=== PATIENT | male | born 1980 | race Hispanic/Latino ===

== ENCOUNTER 2018-09-25 04:17 | Observation (INO) | payer SELFPAY ==
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
[2018-09-25] MEDS ORDERED: Tetanus/Diphtheria Toxoids 0.5 ml Syringe IM ONE (04:49)
[2018-09-25] MEDS ORDERED: Morphine 4 MG/ML VIAL ONE ×2 (04:56→12:09)
[2018-09-25 05:02] LABS: BASO % 0.4 % (0.0-2.0); EOS # 0.1 K/uL (0.0-0.7); EOS % 1.1 % (0.0-4.0); HEMOGLOBIN 14.1 g/dL (12.0-18.0); LYMPH # 1.1 K/uL (1.0-4.3); MEAN CELL VOLUME 92.5 fL (80.0-94.0); MEAN CORPUSCULAR HEMOGLOBIN 32.1 pg (27.0-31.0); MEAN CORPUSCULAR HGB CONC 34.7 g/dL (33.0-37.0); MEAN PLATELET VOLUME 8.7 fL (7.2-11.7); MONO # 0.4 K/uL (0.0-0.8); MONO % 4.4 % (0.0-10.0); NEUT # 7.6 K/uL (1.8-7.0); NEUT % 82.1 % (50.0-75.0); NRBC % 0.1 % (0.0-2.0); RBC 4.4 Mil/uL (4.40-5.90); RED CELL DISTRIBUTION WIDTH 13.7 % (11.5-14.5); WHITE BLOOD COUNT 9.3 K/uL (4.8-10.8)
[2018-09-25 05:14] LABS: PROTHROMBIN TIME 11.1 SECONDS (9.7-12.2)
[2018-09-25 05:15] LABS: ALB/GLOB RATIO 1.5 (1.0-2.1); ALBUMIN 4.6 g/dL (3.5-5.0); ALT/SGPT 41 U/L (21-72); AST/SGOT 52 U/L (17-59); BLOOD UREA NITROGEN 8 mg/dL (9-20); CALCIUM 9.3 mg/dl (8.6-10.4); GFR NON-AFRICAN AMERICAN > 60
[2018-09-25] MEDS ORDERED: Iodixanol 320 MG/ML 100 ML BOTTLE IV ONE (05:22)
[2018-09-25 06:25] LABS: GRANULAR CAST 4 /lpf (0-1); SQUAMOUS EPITHIAL < 1 /hpf (0-5); URINE BACTERIA RARE (<OCC); URINE BILIRUBIN NEGATIVE (NEGATIVE); URINE BLOOD 1+ (NEGATIVE); URINE CLARITY Clear (Clear); URINE COLOR Straw (YELLOW); URINE GLUCOSE (UA) NORMAL (Normal); URINE LEUKOCYTE ESTERASE NEG Leu/uL (Negative); URINE PROTEIN 1+ mg/dL (NEGATIVE); URINE UROBILINOGEN NORMAL mg/dL (0.2-1.0)
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
[2018-09-25] MEDS ORDERED: Morphine 4 MG/ML VIAL IVP PRN (10:26)
[2018-09-25] MEDS ORDERED: Lidocaine 5% Patch TD ONE (10:32)
[2018-09-25] MEDS: Lidocaine 5% Patch TD SCH (10:36)
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
[2018-09-25] MEDS ORDERED: Sodium Chloride 0.9% 1,000 ML IV SCH (11:30)
[2018-09-25] MEDS ORDERED: Multivitamin (MVI) 10 ML, Thiamine 100 MG, Folic Acid 1 MG in Sodium Chloride 0.9% 1,00... IV ONE (12:00)
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
--- NOTE | 2018-09-25 13:22 | CT ---
Date of service: 09/25/2018 PROCEDURE: CT Chest, Abdomen and Pelvis with intravenous contrast HISTORY: TRAUMA COMPARISON: None available. TECHNIQUE: Contiguous helical/transaxial sections of the chest abdomen pelvis performed following intravenous injection of approximately 100 cc Visipaque 320 contrast material. Additional 2D sagittal and coronal reformats generated. Radiation dose: Total exam DLP = 471.84 mGy-cm. This CT exam was performed using one or more of the following dose reduction techniques: Automated exposure control, adjustment of the mA and/or kV according to patient size, and/or use of iterative reconstruction technique. FINDINGS: CT CHEST WITH CONTRAST: LUNGS: There is a small pneumothorax predominately located within the right lung apex. There small localized somewhat rounded shaped opacity seen in the right posterolateral lower lung field subjacent although just to cephalad to acute fractures of the right posterolateral 9th and 10th ribs. Findings likely represent mild post traumatic contusional changes and atelectasis. Minor passive/dependent type atelectasis left posterior sulcus. Small elliptical shaped calcified granuloma left posteromedial lung base abutting the pleural surface. MEDIASTINUM: Unremarkable. Normal caliber aorta and pulmonary arterial trunk. No aortic dissection. Normal size heart. LYMPH NODES: Unremarkable. PLEURA: Unremarkable. No pneumothorax. No pleural fluid. BONES: There are fractures of the right posterolateral 9th and 10th ribs associated with small amount of overlying subcutaneous emphysema. OTHER FINDINGS: None. CT ABDOMEN AND PELVIS: LIVER: Unremarkable. No gross lesion or ductal dilatation. GALLBLADDER AND BILE DUCTS: Unremarkable. PANCREAS: Unremarkable. No gross lesion or ductal dilatation. SPLEEN: Unremarkable. ADRENALS: Unremarkable. No mass. KIDNEYS AND URETERS: Unremarkable. No hydronephrosis. No solid mass. VASCULATURE: No aortic atherosclerotic calcification or mural plaque present. Unremarkable. No aortic aneurysm. BOWEL: Unremarkable. No obstruction. No gross mural thickening. APPENDIX: The appendix not seen with certainty on this exam however no obvious inflammatory changes right lower quadrant of the abdomen. PERITONEUM: Unremarkable. No free fluid. No free air. Tiny fat containing umbilical hernia. LYMPH NODES: Unremarkable. No enlarged lymph nodes. BLADDER: Unremarkable. REPRODUCTIVE: Unremarkable. BONES: No acute fracture. OTHER FINDINGS: None. IMPRESSION: There are nondisplaced fractures of the right posterolateral 9th and 10th ribs. Additionally, there is a small right-sided pneumothorax predominantly apical in location. Probable minor posttraumatic contusional changes in the right posterolateral lower lobe subjacent but just cephalad the to the aforementioned rib fractures.
--- NOTE | 2018-09-25 13:32 | RAD ---
Date of service: 09/25/2018 HISTORY: pneumothorax COMPARISON: Made with prior CT chest 09/25/2018 at 0542 hr TECHNIQUE: Chest PA and lateral FINDINGS: LUNGS: Tiny residual right-sided pneumothorax again noted most conspicuous in appearance adjacent to the right cardiac border. Previously noted small discrete presumed posttraumatic lung parenchymal contusional change right lower lobe poorly seen as compared to prior high-resolution CT scan. Suspect minor bibasilar atelectasis PLEURA: No significant pleural effusion identified. No pneumothorax apparent. CARDIOVASCULAR: No aortic atherosclerotic calcification present. Normal cardiac size. No pulmonary vascular congestion. OSSEOUS STRUCTURES: . Nondisplaced right 9th and 10th rib fractures poorly delineated VISUALIZED UPPER ABDOMEN: Normal. OTHER FINDINGS: None. IMPRESSION: Tiny residual right-sided pneumothorax again noted most conspicuous in appearance adjacent to the right cardiac border. Previously noted small discrete presumed posttraumatic lung parenchymal contusional change right lower lobe poorly seen as compared to prior high-resolution CT scan Suspect minimal bibasilar atelectasis.
[2018-09-25] MEDS: Oxycodone/Acetaminophen 5/325 mg Tab PO PRN ×2 (16:03→21:38)
[2018-09-25] MEDS ORDERED: Oxycodone/Acetaminophen 5/325 mg Tab ONE (16:03)
[2018-09-25 16:38] VITALS: O2SAT 98
[2018-09-26 07:12] LABS: ALB/GLOB RATIO 1.3 (1.0-2.1); ALBUMIN 3.6 g/dL (3.5-5.0); ALT/SGPT 37 U/L (21-72); AST/SGOT 49 U/L (17-59); BLOOD UREA NITROGEN 11 mg/dL (9-20); CALCIUM 8.7 mg/dl (8.6-10.4); GFR NON-AFRICAN AMERICAN > 60
[2018-09-26] MEDS: Oxycodone/Acetaminophen 5/325 mg Tab PO PRN (07:24)
[2018-09-26 07:33] LABS: BASO % 0.5 % (0.0-2.0); EOS # 0.2 K/uL (0.0-0.7); HEMOGLOBIN 13.2 g/dL (12.0-18.0); LYMPH # 1.2 K/uL (1.0-4.3); LYMPH % 15.6 % (20.0-40.0); MEAN CORPUSCULAR HEMOGLOBIN 32.4 pg (27.0-31.0); MEAN CORPUSCULAR HGB CONC 34.5 g/dL (33.0-37.0); MEAN PLATELET VOLUME 9.2 fL (7.2-11.7); MONO # 0.7 K/uL (0.0-0.8); MONO % 8.7 % (0.0-10.0); NEUT # 5.7 K/uL (1.8-7.0); NEUT % 72.2 % (50.0-75.0); NRBC % 0.1 % (0.0-2.0); RBC 4.08 Mil/uL (4.40-5.90); RED CELL DISTRIBUTION WIDTH 14.3 % (11.5-14.5); WHITE BLOOD COUNT 7.9 K/uL (4.8-10.8)
[2018-09-26 08:17] VITALS: BP 123/81; PULSE 67; RESP 18; TEMP 97.4
--- NOTE | 2018-09-26 09:31 | RAD ---
Date of service: 09/26/2018 HISTORY: re-eval right pneumothorax COMPARISON: 09/25/2018 FINDINGS: LUNGS: No active pulmonary disease. PLEURA: No significant pleural effusion identified, no pneumothorax apparent. CARDIOVASCULAR: No aortic atherosclerotic calcification present. Normal cardiac size. OSSEOUS STRUCTURES: Right 9th and 10th rib fractures. VISUALIZED UPPER ABDOMEN: Normal. OTHER FINDINGS: None. IMPRESSION: Rib fracture deformities. Small right-sided pneumothorax seen on CT scan was not well visualized on plain x-ray examination. Correlation with chest CT may be helpful if clinically indicated.
[2018-09-26] MEDS ORDERED: Magnesium Oxide 400 mg Tab UD PO SCH (10:00)
[2018-09-26] MEDS ORDERED: Multiple Vitamins Tab PO SCH (10:00)
--- NOTE | 2018-09-26 10:14 | CP.PCM.PN ---
Subjective - Date & Time of Evaluation Date of Evaluation: 09/26/18 Time of Evaluation: 10:10 - Subjective Subjective: Cardiothoracic Surgery Progress Note for Dr. Cunningham This 37M was seen and examined this AM at bedside no acute events overnight. He denies any SOB howeveer complains of pain with deep inspiration. He denies any nausea or vomiting or any new or worsening symptoms. CXR this AM shows no pneumothorax. Objective - Vital Signs/Intake and Output Vital Signs (last 24 hours): Temp Pulse Resp BP Pulse Ox 97.4 F L 67 18 123/81 98 09/26/18 07:25 09/26/18 07:25 09/26/18 07:25 09/26/18 07:25 09/26/18 07:25 - Medications Medications: Current Medications Acetaminophen (Tylenol 325mg Tab) 650 mg PO Q6 PRN PRN Reason: Pain, Mild (1-3) Docusate Sodium (Colace) 100 mg PO DAILY [facility] Folic Acid (Folic Acid) 1 mg PO DAILY [facility] Lidocaine (Lidoderm) 1 ea TD DAILY [facility] Last Admin: 09/25/18 10:36 Dose: 1 ea Lorazepam (Ativan) 2 mg PO Q4 PRN PRN Reason: Symptoms of alcohol withdrawl Magnesium Oxide (Mag-Ox) 400 mg PO DAILY [facility] Morphine Sulfate (Morphine) 2 mg IVP Q4 PRN PRN Reason: Pain, moderate (4-7) Multivitamins (Hexavitamin) 1 tab PO DAILY [facility] Oxycodone/Acetaminophen (Percocet 5/325 Mg Tab) 1 tab PO Q4H PRN PRN Reason: Pain, moderate (4-7) Stop: 09/28/18 10:27 Last Admin: 09/26/18 07:24 Dose: 1 tab Thiamine HCl (Vitamin B1 Tab) 50 mg PO DAILY [facility] - Labs Labs: 09/26/18 06:26 09/26/18 06:26 PT 11.1 SECONDS (9.7-12.2) 09/25/18 04:59 INR 1.0 09/25/18 04:59 APTT 26 SECONDS (21-34) 09/25/18 04:59 - Constitutional Appears: Non-toxic, No Acute Distress - Head Exam Head Exam: ATRAUMATIC, NORMOCEPHALIC - Eye Exam Eye Exam: EOMI - ENT Exam ENT Exam: Mucous Membranes Moist - Respiratory Exam Respiratory Exam: NORMAL BREATHING PATTERN - Cardiovascular Exam Cardiovascular Exam: +S1, +S2 - GI/Abdominal Exam GI & Abdominal Exam: Soft. absent: Rigid, Tenderness - Neurological Exam Neurological Exam: Alert, Awake - Psychiatric Exam Psychiatric exam: Normal Affect, Normal Mood - Skin Skin Exam: Dry, Intact Assessment and Plan - Assessment and Plan (Free Text) Assessment: 37M with fractures ribs 10/11 on the right AM CXR without evidence of pneumothorax Will Sign off from CT surgery perspective. Recommend incentive spirometer and pain control for rib fractures. Further Recs Per Dr. Octavio Street PGY3
[2018-09-26] MEDS: Lidocaine 5% Patch TD SCH (10:33)
--- NOTE | 2018-09-26 11:29 | US ---
Date of service: 09/26/2018 HISTORY: pt with ETOH abuse, elevated T. Bili COMPARISON: None. TECHNIQUE: Grayscale imaging was performed. FINDINGS: LIVER: Measures 14.1 cm. There is diffuse increased echogenicity of the liver parenchyma. No mass. No intrahepatic bile duct dilatation. GALLBLADDER: There are no gallstones, wall thickening or pericholecystic fluid. The sonographic Gonsalez's sign is negative. COMMON BILE DUCT: Measures 3.0 mm. No stones. No dilatation. PANCREAS: Unremarkable as visualized. No mass. No ductal dilatation. RIGHT KIDNEY: Measures 11.5cm. Normal echogenicity. No calculus, mass, or hydronephrosis. LEFT KIDNEY: Measures 12 pointcm. Normal echogenicity. No calculus, mass, or hydronephrosis. SPLEEN: Normal in size and contour. No mass. AORTA: No aneurysmal dilatation. IVC: Unremarkable. OTHER FINDINGS: None. IMPRESSION: Fatty liver. No cholelithiasis or biliary dilatation.
[2018-09-26] MEDS ORDERED: Pantoprazole 40 mg EC Tab PO ONE (15:00)
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
== END 2018-09-26 15:50 | disposition home or self-care (01) ==
LOC: C.ER 04:17 → C.9E 10:09 → C.5S 15:48
PROVIDERS: ADMIT Internal Medicine; ATTEND Internal Medicine
DX: S27.0XXA Traumatic pneumothorax, initial encounter (principal); S22.41XA Multiple fractures of ribs, right side, initial encounter for closed fracture; Y04.0XXA Assault by unarmed brawl or fight, initial encounter; F17.210 Nicotine dependence, cigarettes, uncomplicated; K76.0 Fatty (change of) liver, not elsewhere classified; Z90.49 Acquired absence of other specified parts of digestive tract
CPT/HCPCS: 36415; 70450; 71045; 71046; 71260; 72125; 74177; 76700; 80053; 81001; 85025; 85610; 85730; 90471; 90714; 96374; 96375; 96376; 97116; 97161; 99285; G0378; G0480; G8978; G8979; G8980; J2270; J2405; J3411; J7030; Q9967